=== PATIENT | female | born 1935 | race Caucasian/White ===

== ENCOUNTER 2021-04-05 12:24 | Inpatient (IN) | payer MEDICARE ==
[~2021-04-05] VITALS: Ht 165.1 cm; Wt 50.3 kg
[~2021-04-05 12:24] MED LIST: ALEVE220 MG PO; CALCIUM 600 +1 EACH PO; COQ10-VIT E 201 EACH PO; OMEPRAZOLE20 MG PO; VITAMIN B COMP1 EACH PO; VITAMIN D-32000 UNIT PO
--- NOTE | 2021-04-05 20:20 | NUR ---
2012 PT ADMITTED TO ROOM 110 FROM ED, ACCOMPAINED BY HER DAUGHTER FLORENCIO. PT ALERT/ORIENTATED, REQUIRED STAFF ASSIST TO MOVE OVER TO BED FROM STRETCHER. ON 2L O2. LIVES ALONE, IS COUGHING, DAUGHTER STATES PT IS WEAK, WHICH IS NOT NORMAL FOR HER. REQUESTED AND RECEIVED SANDWICH, FRUIT.
--- NOTE | 2021-04-05 20:33 | NUR ---
PT ATE PUDDING PRIOR TO THE POTASSIUM TABS. DAUGHTER STATES PT SON WILL BRING IN HER ADVANCED DIRECTIVE ON SUNDAY. PT STATES SHE ISNT TOO HUNGRY DESPITE NOT EATING ALL DAY. DAUGHTER NOT PLANNING TO STAY, BED ALARM PLACED FOR PT SAFETY.
--- NOTE | 2021-04-05 22:43 | NUR ---
PATIENT ASSESEMENT COMPLETED. PATIENT REMAINS ON 2L VIA MD. PATIENT HAS CPOX IN USE. PATIENT DENIES ANY SOB. PATIENT DENIES ANY PAIN. PATIENTS MEDICATIONS GIVEN PER ORDER. PATIENT DENIES THE NEED TO USE THE RESTROOM AT THIS TIME. PATIENT DENIES ANY NEEDS. CALL LIGHT IN REACH.
--- NOTE | 2021-04-06 01:39 | NUR ---
PATIENT VITALS TAKEN AND RECORDED. PATIENT DENIES ANY SOB. PATIENT DENIES ANY NEEDS. CALL LIGHT IN REACH. BED ALARM ON FOR SAFETY.
--- NOTE | 2021-04-06 03:44 | NUR ---
BED ALARM ALERTED STAFF. PATIENT ASSISTED TO THE BSC A 1PA. PATIENT WAS ABLE TO VOID. PATIENT IS BACK IN BED RESTING. FRESH ICE WATER PROVIDED. PATIENT REMAINS ON 3L VIA NC. PATIENT DENIES ANY FURTHER NEEDS. CALL LIGHT IN REACH. BED ALARM ON FOR SAFETY.
--- NOTE | 2021-04-06 05:23 | NUR ---
PATIENTS VITALS TAKEN AND RECORDED. INTAKE AND OUPUT RECORDED. PATIENT DENIES ANY NEEDS. CALL LIGHT IN REACH.
--- NOTE | 2021-04-06 07:51 | NUR ---
Shift report recieved from CHRISTINE Em, pt resting safely in bed w/ call light in reach, bed alarm on, and eyes closed. RR even and unlabored, SPO2 stats 93% on 2L via NC.
--- NOTE | 2021-04-06 10:00 | NUR ---
1PA TO CHAIR PT SITTING UP SAFELY W/ FEET ELEVATED AND CALL LIGHT IN REACH, PT DID NOT WANT BREAKFAST BUT GIVEN COFFEE UPON REQUEST. MORNING ASSESMENT COMPLETE AND NO SCHEDULED MEDS AT THIS TIME. PT DENIED ANY OTHER NEEDS AT THIS TIME.
--- NOTE | 2021-04-06 11:07 | NUR ---
Patient refused breakfast. Lunch has been ordered. Vitals, I&os are complete. Patient has not had a BM yet today. Patient has voided however. Call light is in reach.
--- NOTE | 2021-04-06 12:00 | NUR ---
PT SITTING UP IN CHAIR W/ CALL LIGHT IN REACH, EATING LUNCH. PT DENIES ANY NEEDS AT THIS TIME. PT STILL DISORIENTED AT TIMES BUT EASILY REORIENTED.
--- NOTE | 2021-04-06 12:46 | NUR ---
PATIENT UP IN CHAIR IN ROOM. STAFF NURSE STATES THAT SHE IS JUST A LITTLE CONFUSED RIGHT NOW. CALLED DAUGHTER YAHAIRA RAMIREZ TO DO ASSESSMENT. PATIENT LIVES IN OWN HOME. DRIVES ONLY LOCALLY. DOES HER OWN HOUSEWORK, COOKING, YARD WORK AND SHOPPING. STATES SHE LIVES JUST A FEW BLOCKS AWAY AND SHE COOKS DINNER USUALLY, DOES MAIN SHOPPING FOR PATIENT. PATIENT LIVES ON ONE LEVEL. HAS A FWW SHE USES ON OCCASION. ALSO HAS A 4WW AND A CANE. HAS WALK-IN SHOWER WITH SEATING. GRAB BARS IN BATHROOM. SHE HAS OTHER ADULT KIDS, ONE SON ALSO IN AREA. SHE ALSO HAS GRANDKIDS, NEICES AND NEPHEWS. STATES FAMILY CHECKS IN AND VISITS WITH HER ALMOST EVERY DAY TOO. SHE STATES PATIENT IS SET UP FINANCIALLY AND HAS NO WORRIES FOR MEDS/FOOD/UTILITIES. THE PLAN WILL BE FOR PATIENT TO RETURN HOME AND FAMILY CAN HELP AT DISCHARGE. SHE HAS NO PREFERENCE FOR OXYGEN SUPPLY IF NEEDED. HER ONLY CONCERN IS MEDICATIONS. SHE STATES PATIENT HAS MANY ALLERGIES AND SENSITIVITIES FOR MEDS AND DOES NOT WANT HER TO RECEIVE ANYTHING UNLESS THEY AGREE TO IT. SHE IS ADAMANT SHE NOT RECEIVED REMDESIVIR. STATES SHE HAS READ UP ON IT AND "IT DOES MORE HARM THAN GOOD". SHE ALSO STATES "I DON'T KNOW WHY YOU AREN'T GIVING IVERMECTIN, IT IS THE ONLY THING WORKING FOR COVID". DISCUSSED THAT SHE WOULD HAVE TO TALK WITH DOCTOR ABOUT THAT, I DO NOT ORDER MEDICATIONS. SHE STATES SHE IS COMING UP TO THE HOSPITAL TO CHECK ON PATIENT. DOES NOT HAVE ANY OTHER QUESTIONS.
--- NOTE | 2021-04-06 14:00 | NUR ---
PT SITTING UP IN CHAIR W/ CALL LIGHT IN REACH, DAUGHTER IN ROOM VISITING. PT DENIES ANY NEEDS AT THIS TIME.
--- NOTE | 2021-04-06 14:09 | NUR ---
Vitals and I&Os are done. Patient is in chair with warm blankets. Call light is in reach. Patient is going to try to use the commode. Manager Meat is in room.
--- NOTE | 2021-04-06 16:00 | NUR ---
PT SITTING UP IN CHAIR SAFELY W/ CALL LIGHT IN REACH, PT GIVEN FRESH ICE WATER AND HOT TEA PER REQUEST. PT DENIES ANY OTHER NEEDS AT THIS TIME.
--- NOTE | 2021-04-06 17:55 | NUR ---
Patient is working on eating dinner and has eaten about 10% of it so far. vitals, I&Os are done.
--- NOTE | 2021-04-06 18:05 | NUR ---
PT SITTING UP IN BED EATING DINNER, PT DENIES ANY NEEDS AT THIS TIME, PT NOW AWARE SHE IS IN A HOSPITAL BUT STILL CONFUSED ON WHAT MONTH OR YEAR IT IS, AND WHAT TOWN WE'RE IN.
--- NOTE | 2021-04-06 19:53 | NUR ---
RECEIVED REPORT FROM DAY SHIFT RN. PATIENT IS RESTING IN BED. DAUGHTER IS AT THE BEDSIDE. NO NEEDS NOTED. CALL LIGHT IN REACH.
--- NOTE | 2021-04-06 22:01 | NUR ---
PATIENT ASSESMENT COMPLETED. PATIENT WAS INCONTINENT OF URINE. PATIENTS ATTEND CHANGED AND SMITA CARE COMPLETED. VITALS TAKEN AND RECORDED. INTAKE AND OUTPUT RECORDED. PATIENT GIVEN SCHEDULED MEDICATION PER ORDER. PATIENT IS CONFUSED. PATIENT DOES OREINT EASILY. PATIENT DENIES ANY SOB. PATIENT REMAINS ON 2L VIA NC. CPOX IN USE. CALL LIGHT AND BELONGINGS ARE WITHIN REACH. BED ALARM ON FOR SAFETY.
--- NOTE | 2021-04-06 23:51 | NUR ---
PATIENT IS RESTING IN BED WITH EYES CLSOED, RR 15. CPOX READINGS ARE WNL. CALL LIGHT IN REACH. BED ALARM ON FOR SAFETY.
--- NOTE | 2021-04-07 01:11 | NUR ---
PATIENT IS RESTING IN BED WITH EYES CLOSED, RR 16, CPOX READINGS ARE WNL. PATIENTS CALL LIGHT IS WITHIN REACH. BED ALARM ON FOR SAFETY.
--- NOTE | 2021-04-07 03:52 | NUR ---
PATIENT IS RESTING IN BED WITH EYES CLOSED, RR15. OXYGEN SATURATION 93% PATIENT REMAINS ON 2L VIA NC. CALL LIGHT IN REACH. BED ALARM ON FOR SAFETY.
--- NOTE | 2021-04-07 05:21 | NUR ---
PATIENT WAS INCONTINENT OF URINE. ATTEND AND BEDDING CHANGED. ALLEVYN PLACED ON COCYX. PATIENT IS ON 3L VIA NC. PATIENT DENIES ANY PAIN OR SOB. PATIENT DENIES ANY NEEDS. PATIENT WAS ABLE TO STATE THAT SHE WAS IN A HOSPITAL. PATIENT IS UNAWARE OF DATE, TIME, AND WHY SHE IS HERE. PATIENT ORIENTED. PATIENT DENIES ANY QUESTSIONS. CALL LIGHT IN REACH. BED ALARM ON FOR SAFETY.
--- NOTE | 2021-04-07 08:00 | NUR ---
Shift report received from CHRISTINE Em, pt resting safely in bed w/ call light in reach and bed alarm on. O2 sats 94% on 3L via NC. Daughter in room assisting pt w/ breakfast no needs at this time.
--- NOTE | 2021-04-07 09:23 | NUR ---
Patient was encouraged to use call light. Patient via BSC, 1PA and back to bed. Call light is in reach.
--- NOTE | 2021-04-07 10:00 | NUR ---
PT SITTING UP IN BED W/ CALL LIGHT IN REACH, SENIOR MECHANICAL DESIGNER IN ROOM TO ASSIST PT TO BATHROOM
--- NOTE | 2021-04-07 11:35 | NUR ---
PATIENT QUALIFIES FOR HOME OXYGEN ACCORDING TO RT. UPDATED DR CORTEZ. DISCHARGE WILL BE STARTED. CALLED DAUGHTER YAHAIRA [phone] WHO I SPOKE WITH YESTERDAY. SHE STATES SHE IS AT WORK. DISCUSSED THAT PATIENT CAN BE DISCHARGE WITH HOME OXYGEN AND WANTED TO CONFIRM WITH HER SHE HAS NO PREFERENCE FOR DME TO USE AND TO SEE IF THEY HAD ANYTHING ELSE THAT WOULD BE NEEDED. SHE STATES SHE WAS IN EARLIER TODAY AND NO ONE MENTIONED DISCHARGE. TURNS OUT SHE WAS IN EARLY BEFORE WORK. DISCUSSED THAT IT WAS JUST DETERMINED IN THE LAST HOUR THAT SHE IS MEDICALLY READY. SHE STATES "WELL I CAN'T TAKE HER HOME, I AM AT WORK". EXPLAINED WE CAN WAIT TILL LATER TODAY IF SHE NEEDS. I ASKED AGAIN IF THERE WAS ANYTHING NEEDED, SHE HAD SAID YESTERDAY THE PATIENT HAS A WALKER AND CANE IF NEEDED AT HOME. DISCUSSED THAT SHE IS ABLE TO AMBULATE WITH STAFF BUT SHE MAY WANT TO USE THAT FOR STABILITY. DISCUSSED THAT PATIENT WILL NEED SOMEONE AROUND UNTIL SHE IS RECOVERED ENOUGH TO TAKE CARE OF SELF AGAIN. I ASKED IF THEY HAVE ARRANGED WHO WAS STAYING WITH HER. SHE THEN STATED "WELL MY BROTHER IS OUT OF TOWN AND I HAVE TO WORK. I DON'T KNOW WHO IS STAYING. WE DON'T HAVE ANYONE WHO CAN BE THERE. I THOUGHT SHE WAS STAYING THERE UNTIL SHE WAS WELL". EXPLAINED THAT PATIENTS STAY UNTIL MEDICALLY STABLE AND CAN GET THE CARE THEY NEED AT LOWER LEVEL AND DO NO LONGER NEED ACUTE CARE. I DISCUSSED THAT YESTERDAY SHE INDICATED THE FAMILY WOULD BE PROVIDING CARE AFTER DISCHARGE. EXPLAINED I CAN HELP THEM ARRANGE A REHAB STAY IF NEEDED, BUT THIS WOULD BE AN OUT OF TOWN FACILITY THERE IS NO WHERE AROUND OUT AREA WHO TAKE COVID PATIENTS. SHE STATES "NO NO WE DON'T WANT HER IN ONE OF THOSE". SHE STATES THAT "NURSE TOLD ME SHE WAS INCONTINENT LAST NIGHT, YOU DON'T SEND SOMEONE HOME WITH THAT RIGHT?". EXPLAINED THAT NO THAT WAS NOT AN ACUTE HOSPITAL ISSUE. THAT DEPENDS CAN BE USED IF NEEDED. I ASKED IF THEY WANTED TO HIRE SOME HELP, SHE HAD TOLD ME YESTERDAY THAT PATIENT WAS WELL TAKEN CARE OF FINANICALLY. SHE STATED "I DON'T THINK THERE IS ANYONE AROUND HERE LIKE THAT". I EXPLAINED THERE IS AN AGENCY IN TOWN SHE CAN CALL, AND GAVE HER THE CONTACT NUMBER FOR THEM. I ALSO STATED THERE ARE PRIVATE CAREGIVERS IN THE AREA AND SHE CAN OBTAIN A LIST FROM SENIORS AND DISABILITY OFFICE SHE CAN HIRE FROM. EXPLAINED THAT WE WANT TO GIVE HER SOME TIME TO TALK WITH HER OTHER FAMILY MEMBERS AND TO LET US KNOW LATER THIS AFTERNOON WHAT THEY WANT TO DO. SHE STATES "MY BROTHER WANTS HER TO GET AN ANTIVIRAL. WHY CAN'T YOU PEOPLE GIVE HER HYDROXYCHLORIQUINE OR IVERMECTIN, I KNOW FOR A FACT THEY CURE COVID". SHE ALSO STATES "OR A ANTIBIOTIC AT LEAST". I EXPLAINED THAT THESE ARE NOT USED FOR COVID. I SUGGESTED SHE TALK WITH THE DOCTOR IF SHE HAS MORE CONCERNS REGARDING THIS. UPDATED STAFF AND DR CORTEZ.
--- NOTE | 2021-04-07 12:00 | NUR ---
PT SITTING UP IN BED EATING LUNCH DAUGHTER IN ROOM, UPDATE GIVEN. PT'S O2 SATS 94% ON 3L VIA NC, DENIES ANY NEEDS AT THIS TIME.
--- NOTE | 2021-04-07 13:15 | NUR ---
DR CORTEZ STATES HE SPOKE WITH SON HUSSAIN WHO IS POA. HE STATES PATIENT NEEDS TO GO TO REHAB UNTIL ABLE TO GO HOME. CALLED LOCAL FACILITIES, NO ONE TAKES POSITIVE COVID PATIENTS WHO ARE STILL IN QUARANTINE PHASE. CALLED [facility] IN [place] WHO DO TAKE COVID PATIENTS. LEFT MESSAGE FOR DIRECTOR STEPHANIE. ASKED FOR CALL BACK ON IF THEY ARE TAKING PATIENTS DIRECTLY NOW. LEFT CALLBACK NUMBER.
--- NOTE | 2021-04-07 13:16 | NUR ---
MED REC COMPLETE
--- NOTE | 2021-04-07 14:00 | NUR ---
CASE MANAGMENT SPEAKING W/ PT NO NEEDS AT THIS TIME.
--- NOTE | 2021-04-07 14:30 | NUR ---
SPOKE WITH PATIENT FROM DOORWAY IN ROOM. PATIENT IS PLEASANT, BUT OBVIOUSLY CONFUSED. WAS UNABLE TO ANSWER QUESTIONS. WILL CALL POA.
--- NOTE | 2021-04-07 15:00 | NUR ---
SPOKE WITH SON HUSSAIN BY PHONE [phone]. HE IS POA. HE STATES HE DID TALK WITH DR CORTEZ. HE STATES HE SPOKE WITH PATIENT BY PHONE AND THAT HE FEELS SHE IS TOO CONFUSED TO GO HOME AND WOULD LIKE HER TO GO TO A FACILITY TO RECOVER. DISCUSSED THAT THERE ARE NO FACILITIES IN [facility]. THAT WE CAN SUBMIT A COVID SURGE FORM TO THE STATE AND THEY WILL HELP FIND A FACILITY THAT CAN TAKE COVID POSITIVE PATIENTS AT THIS TIME. HE STATES UNDERSTANDING AND IS AGREEABLE TO THIS. I ASKED IF WE HAD A COPY OF THE POA WE MAY NEED THIS, HE STATES THE HOSPITAL HAS IT ALREADY. QUESTIONS ANSWERED.
--- NOTE | 2021-04-07 16:00 | NUR ---
PT SITTING UP IN BED W/ CALL LIGHT IN REACH. O2 SATS REMAIN STABLE AT 93% ON 3L VIA NC. PT STILL CONFUSED AT TIMES, BUT EASILY REORIENTED.
--- NOTE | 2021-04-07 16:00 | NUR ---
SUBMITTED [place] [employer] COVID SURGE FORM BY EMAIL TO [email or web address].
--- NOTE | 2021-04-07 16:20 | NUR ---
RECEIVED CALL FROM DAUGHTER YAHAIRA. UPDATED HER ON CONVERSATIONS WITH HER BROTHER. SHE STATES "SHE HAS HAD COVID FOR TWO WEEKS, SHE ISN'T CONTAGIOUS ANYMORE". EXPLAINED HER TESTING WAS ON 04/05 AND THAT IS THE DATE I HAVE TO USE. SHE IS AGREEMENT THAT PATIENT CAN'T GO HOME ALONE. STATES SHE CAN "DRIVE BY A COUPLE TIMES A DAY, BUT I WORK". AGAIN SHE IS REQUESTING "HYDRACHLORAQUINE AND IVERMECTIN". ALSO "YOU NEED TO READ THE RIGHT LITERATURE". DID NOT ENGAGE WITH THIS. TOLD HER I HAVE SUBMITTED REQUEST FOR A COVID BED IN THE STATE. WE WILL LET THEM KNOW WHEN WE HEAR ANYTHING.
--- NOTE | 2021-04-07 18:02 | NUR ---
Patient vitals, I&Os are done. Patient is waiting for her dinner to come.
--- NOTE | 2021-04-07 18:20 | NUR ---
PT RESTING IN BED SAFELY IN BED EATING DINNER, DAUGHTER AT BEDSIDE, NO NEEDS AT THIS TIME
--- NOTE | 2021-04-07 20:49 | NUR ---
pleasantly confused, coop with assessment. on 2L O2. lu8ngs dim w fine cracklesa, moist productive cough white phlegms. distended soft abd, attends in place, edema LE, SL LA, patent. HOB elevated, watching tv. fall amd aspiration precautions in place. on airborne isolation
--- NOTE | 2021-04-07 22:59 | NUR ---
RESTING, O2 2LNC, CPOX AT BEDSIDE 95%, HOB ELEVATED TO COMFORT, BED ALARM ON, FALL PRECAUTIONS IN PLACE, CALL LIGHT AND FLUIDS AT BEDSIDE, CONTINUES ON AIRBORNE ISOLATION PRECAUTIONS
--- NOTE | 2021-04-08 00:19 | NUR ---
incontinent of large amont of urine, skin care, attends in place. turned and repositioned, O2 2L NC, sats 91%. legs elevated, hob elevated to comofrt, no sob with repositioning, pt confused, unable to understand proning positioning or CDB/IS usage. on airborne isolation precautions
--- NOTE | 2021-04-08 02:24 | NUR ---
PT IN BED, O2 2LNC, CPOX AT BEDSIDE 94%. BED ALAMR ON, FLUIDS AND CALL LIGHT AT HANDS REACH, CONT. ON AIRBORNE ISOLATION PRECAUTIONS
--- NOTE | 2021-04-08 05:05 | NUR ---
Pt on Airborne Isolation Precautions, On 2LNC, cpox in place, sats 94-96%, no cough at this time. lungs dim at bases with fine crackles earlier in shift, just dim at this time. Has slept, coop with turning and repositioning. Was incontinent of urine, skin care, barrier cream, clean attends. Pleasantly confused. all procedures explained. Fall and Aspiration precautions in place. Bed alarm on. sl patent. tolerating fluids well. bruising over arms and legs
--- NOTE | 2021-04-08 06:56 | NUR ---
Pt incontinent of large amount of strong smelling urine, skin care, clean attends in place. cooperative, pleasantly confused. tolerating small sips of fluids.
--- NOTE | 2021-04-08 07:39 | NUR ---
Patient resting in bed, respirations even and non labored. Patient remains on 2L oxygen per nc, spo2 93% at this time. Daughter at bedside-she reports she is patient's caregiver. No pt distress noted. Personal supplies and call light within reach.
--- NOTE | 2021-04-08 08:00 | NUR ---
RECEIVED EMAIL BACK FROM [facility] COVID SURGE REQUEST. THEY HAVE FORWARDED CHART FOR REVIEW TO SNF IN [place].
--- NOTE | 2021-04-08 08:31 | NUR ---
Patient is sitting in chair and eating a snack from her daughter. Breakfast was ordered. Vitals, I&Os are complete.
--- NOTE | 2021-04-08 08:33 | NUR ---
Patient had a bed bath 1PA assist, on Apr.06.
--- NOTE | 2021-04-08 12:27 | NUR ---
Patient assisted to bedside commode for void then back to bed. Patient weak, unsteady gait. Lunch brought to patient, encouraged her to eat-pt eats small bites independently. No current needs at this time. Patient remains on 2L oxygen per nc, respirations even and non labored. Personal supplies and call light within reach.
--- NOTE | 2021-04-08 13:30 | NUR ---
REPORT RECIEVED GARY DONG RN. PT SITTING IN BED WITH DAUGHTER AT BEDSIDE. 2L NC IN PLACE. CPOX. BEST WNL. CALL LIGHT IN REACH.
--- NOTE | 2021-04-08 14:11 | NUR ---
Patient vitals, I&Os are done. Call light is in reach.
--- NOTE | 2021-04-08 15:02 | NUR ---
CALLED [facility] [phone]. SPOKE WITH DAVE IN ADMITTING. THEY DID RECEIVED EMAIL PACKET, BUT THEN ANOTHER EMAIL STATING TO DISREGARD IT WAS SENT TO [facility]. HE SUGGESTED I CALL SMITHA AT [facility]. CALLED SMITHA [facility] [phone]. SHE STATES THEY FORWARDED REFERRAL TO [facility] AND TO CALL [facility] [phone]. CALLED AND SPOKE WITH HER. SHE STATES THEY HAVE NOT RECEIVED, BUT WITH FURTHER LOOKING SHE FOUND IT. SHE STATES THEY WILL REVIEW. GAVE HER THE CONTACT FOR OUR NURSING DRESS DESIGNER PHONE IN CASE IT IT AFTER OUR HOURS OR ON THE WEEKEND. SHE STATES SHE IS NOT SURE WHEN THEY CAN DETERMINE IF THEY HAVE A BED. MIGHT BE NEXT WEEK. ALSO GAVE HER DISCHARGE OFFICE FOR CASE MANAGEMENT CONTACT NUMBER. CALLED PATIENTS SON HUSSAIN YEE AND UPDATED HIM. ALSO DISCUSSED THAT IF SHE GETS ACCEPTED SOMEWHERE, TRANSPORTATION WILL BE AT PATIENTS COST. FAMILY CAN TRANSPORT OR A TRANSPORT COMPANY CAN BE CONTACTED WHICH IS ALL OUT OF POCKET. HE IS FINE WITH THIS. HE ASKED IF WE CAN ARRANGE THAT AHEAD OF TIME, BUT EXPLAINED WE CANNOT UNTIL WE KNOW FOR SURE WHERE AND WHEN SHE IS GOING. ALL QUESTIONS ANSWERED.
--- NOTE | 2021-04-08 15:09 | NUR ---
PACKET WILL BE LEFT WITH CLINICALS, PASSR AND CONTACT INFORMATION IN HARD CHART AT NURSES STATION IN CASE THEY CALL ON THE WEEKEND.
--- NOTE | 2021-04-08 15:30 | NUR ---
IN FOR PT ASSESSMENT. ASSISTED TO BATHROOM FOR VOID. CALL LIGHT IN REACH. DENEIS FURTHER NEEDS.
--- NOTE | 2021-04-08 15:31 | NUR ---
UPDATED BI TECHNICAL LEAD AND SHAKER FLATWORK DEBRA ON NEEDS IF FACILITY FROM [place] CALLS AND ACCEPTS PATIENT THROUGH WEEKEND. NOTE WITH INSTRUCTIONS GONE OVER WITH THEM AND LEFT IN CHART WITH PACK.
--- NOTE | 2021-04-08 17:00 | NUR ---
PT UP TO CHAIR FOR DINNER. INCONT OF URINE. ATTENDS CHANGED. DENIES NEEDS. CALL LIGHT IN REACH. DAUGHTER AT BEDSIDE.
--- NOTE | 2021-04-08 17:22 | NUR ---
Daughter is in room. RN did vitals. I&Os are complete and patient has just recieved her dinner.
--- NOTE | 2021-04-08 20:59 | NUR ---
awake, watching tv. on airborne isolation precautions, O2 @LNC, lungs dim and fine crackles t/o. moist non prod cough present. fluids at bedside, no emesis. hob elevated. cpox at [facility]. bed alarm on legs elevated. pleasantly confused. turned and repositioned, melany rae of urine
--- NOTE | 2021-04-08 21:18 | EKG ---
[facility] [address] [place], [place] [address] Signed Sinus rhythm with 1st degree AV block with premature atrial complexes Possible Anterior infarct , age undetermined Abnormal ECG No previous ECGs available Confirmed by WILMA CHANG DO ([id number]) on 04/08/2021 9:18:22 PM Electronically Signed By: WILMA CHANG DO 04/08/212117 PATIENT NAME: JAMESELVIRAKYM WEBB Electrocardiogram DATE OF : 33 PHYSICIAN: WILMA CHANG DO REPORT #: [id number] REPORT IS CONFIDENTIAL AND NOT TO BE RELEASED WITHOUT AUTHORIZATION
--- NOTE | 2021-04-08 23:59 | NUR ---
RESTING, HOB ELEVATED, O2 2L NC/BEDSIDE CPOX AT 92%. BED ALARM ON
--- NOTE | 2021-04-09 02:32 | NUR ---
INCONTINENT OF LARGE AMOUNT OF URINE, SKIN CARE, CLEAN ATTENDS INPLACE, WHOLE BED AND GOWN CHANGED, COOPERATIVE, ALL PROCEDURE EXPLAINED. BED ALRM ON, TOLERATING SIPS OF LIQUIDS. BED ALARM ON. TURNED TO L SIDE, CPOX AT BEDSIDE 2lnc, SATS 94%
--- NOTE | 2021-04-09 03:25 | NUR ---
pt getting oob, bed alarm set off, pt needs to void, 1pa pivot to bedside commode, void 300mls, back to bed at this time, bed alarm reset
--- NOTE | 2021-04-09 04:21 | NUR ---
Pt continues on airborne isolation precautions. On 2LNC, bedside cpox 92-96%. Lungs dim at bases, occassional cough present, no oral drainage. pleasantly confused, was incontinent of urine several tiimes, skin care, barrier cream and clean attends, whole bed changes. Bed alarm on, went off X1 trying to get out of bed, up to bsc with 1PA, voided, back to bed, tolerated well, no desatting, no sob with exertion, fluids at bedside, no emesis, tolerating small sips.
--- NOTE | 2021-04-09 06:33 | NUR ---
turned and repositioned, attends clean, O2 weaned off from 2L sats 96%, to 1L sats 94%, to room air, bedside cpox 91%. Pt was on room air when turned and repositioned. cpox in place, did not desatted. took sips of water. cooperative, hob elevated, fall and aspiration precautions in place. bed alarm on
--- NOTE | 2021-04-09 09:30 | NUR ---
REPORT RECEIVED FROM NIGHT RN AND PT. CARE RESUMED. PT. IS ALERT AND UP IN THE CHAIR. SHE ORIENTED TO ALL BUT DATE. SHE APPEARS CONFUSED THOUGH AND CANNOT TELL ME WHAT IS WRONG OR IF SHE IS HAVING PAIN. LUNGS DIM. IN THE BASES BILAT. IV SITE FLUSHES AND WNL. PT. LEFT RESTING IN THE CHAIR WITH CALL LIGHT IN REACH EATING BREAKFAST.
--- NOTE | 2021-04-09 10:20 | NUR ---
[facility] [place], and prefer that she be down there as early as possible. I did explain the distance factor, their request was to have her there before 3:00 p.m. Folled up with Son Danny who is listed as her primary contact, to inquire if family would drive her, or if we need to look for transportation. Danny will follow-up with his family members and get back to me on transportation options.
--- NOTE | 2021-04-09 15:00 | NUR ---
ROUNDING ON PT. SHE IS SITTING UPRIGHT IN BED. 02 SAT IS 95%. HER NC IS ON HER FOREHEAD. REMOVED 02 NC. SHE IS CONFUSED AND STATES SHE WISHES SHE KNEW WHAT SHE NEEDS. PT. REORIENTED BY THIS RN. ATTENDS DRY. PT. DENIES PAIN OR FURTHER NEEDS. LEFT RESTING WITH CALL LIGHT IN REACH.
[2021-04-09] MEDS ORDERED: DEXAMETHASONE6 MG PO (15:50)
--- NOTE | 2021-04-09 16:02 | NUR ---
Nargis is scheduled to discharge tomorrow to [facility] in [place], address is [address] [place] [address]. Daughter Igor Monaco will come in at 0900 to pick Nargis up and transport her per private vehicle. Pt will need to go with oxygen. There are [employer] tanks in house for this trip. Length of trip was reviewed with [employer] rep. who reported, if the patient goes on 2L 02, send three tanks. Per [employer] rep. they should be able to make the trip on 1-2 Liters of 02 with 2 tanks, however, advises sending 3 tanks in case there are unexpected delays in the trip. This has been explained to RT Adalid who [facility], and this has been explained to Hailey Diaz [employer] Assembler, who is also scheduled to work tomorrow. Patient should go with 1 regulator, 3 tanks, someone will need to teach the daughter how to switch the tanks given we do not have enough regulators available for each individual tank.
--- NOTE | 2021-04-09 17:38 | NUR ---
Called [facility] and left a message to let them know that the daughter would be at our facility at 0900 tomorow, 04/10/2021. I have faxed the orders today, and left the phone number for our medical department should they have any questions in the morning. [facility] also [facility] that [facility] would come with three 02 tanks, and that [facility] would need to call [employer] in their area to have the tanks picked up, per our [employer] rep. the daughter should not be asked to drive the tanks back to [place].
--- NOTE | 2021-04-09 18:10 | NUR ---
PT. DUE TO VOID. SHE STATES SHE IS NOT SURE IF SHE HAS TO GO. . PT HAD AMBULATED WITH SBA TO BATHROOM AND HAD A LARGE VOID. ON AND 02 SAT REMAINS ABOVE 92% WITH AMBULATION.
--- NOTE | 2021-04-09 20:36 | NUR ---
continues on airborne isolation precautions, cooperative with assessment, on room air, lungs crackles at bases, cpox at bedside 93%. Incontinent of urine, red fior area, allevyn in place buttocks area. repositioned in bed. moist non productive cough noted. aspiration precautions in place. bed alrm, fall precautions.
--- NOTE | 2021-04-09 23:42 | NUR ---
BED ALARM GOING OFF, TRYING TO GET OUT OF BED, HELPED TO BSC, VOIDED, BACK TO BED, SBA. BED ALRM ON. BEDSIDE CPOX IN PLACE, CONTINUES ON AIRBORNE ISOLATION PRECAUTIONS
--- NOTE | 2021-04-10 00:22 | NUR ---
PT UP TO BSC, 1PA/ FWW. PERICARE DONE. PT BACK IN BED, TURNED RIGHT WITH PILLOW SUPPORT.
--- NOTE | 2021-04-10 01:49 | NUR ---
Resting, on room air, bedside cpox in place, sats 92%, no distress, bed alarm on
--- NOTE | 2021-04-10 05:20 | NUR ---
Pt continues on airborne isolation precautions. may be DC to a [place] [facility] facility today via private car. pt pleasantly confused. on room air, lungs dim at bases, fine crackles. bedside cpox in place, sats 92-95%. Was incontinent of urine and tried to get out of bed X1, BSC 1PSB, voided and went back to bed, has slept most of this shift. has turned. cooperative with assessments. Bed alarm on, HOB elevated for meals or drinking. fall and aspiration precautions in place.
--- NOTE | 2021-04-10 08:00 | NUR ---
REPORT RECEIVED FROM NIGHT RN AND PT. CARE RESUMED. PT IS BEING PREPARED FOR TRANSFER TO REHAB FACILITY. ALLEVYN REPLACED ON COCYX PER DAUGHTER'S REQUEST SKIN UNDERNEATH IS INTACT AND WITHOUT REDNESS. IV REMOVED BY [employer] WORKER. PT. AMBULATING WITH SBA AND FWW TO THE BATHROOM TO VOID AND ASSISTED WITH DRESSING. ALL PT. AND FAMILY QUESTIONS ANSWERED.
--- NOTE | 2021-04-10 09:36 | NUR ---
[facility] CALL[facility] TO GIVE REPORT. PLACED ON HOLD FOR 10 MINUTES AND STAFF REPORT THAT RN IS UNAVAILABLE AND SHE IS NOT SURE WHEN SHE WILL BE AVAILABLE. PT. HAS LEFT WITH DAUGHTER AND ALL BELONGINGS VIA WHEELCHAIR WITH [employer] DRIVER. SHE HAD DISCHARGE INSTRUCTIONS AND ORDERS TO TAKE TO THE FACILITY AND 02 TANKS. VITALS STABLE
== END 2021-04-10 09:10 | DRG 177 ==
LOC: ED 12:24 → MS 19:07
PROVIDERS: ADMIT Internal Medicine; ATTEND Internal Medicine
PROC: 3E0DX3Z Introduction of Anti-inflammatory into Mouth and Pharynx, External Approach (ICD-10-PCS; principal; 2021-04-05)
DX: U07.1 COVID-19 (principal); J12.82 Pneumonia due to coronavirus disease 2019; J96.01 Acute respiratory failure with hypoxia; J43.9 Emphysema, unspecified; M81.0 Age-related osteoporosis without current pathological fracture; M19.90 Unspecified osteoarthritis, unspecified site; M40.209 Unspecified kyphosis, site unspecified; Z90.711 Acquired absence of uterus with remaining cervical stump; Z90.721 Acquired absence of ovaries, unilateral; Z98.890 Other specified postprocedural states; Z90.49 Acquired absence of other specified parts of digestive tract; Z98.1 Arthrodesis status; Z87.11 Personal history of peptic ulcer disease; Z88.5 Allergy status to narcotic agent; Z88.4 Allergy status to anesthetic agent
CPT/HCPCS: 71045; 80053; 83735; 83880; 84484; 85025; 93005; 93010; 94640; 94760; 94761; 94762; 96372; 97162; 99285-25; A9270; C9803; J1650; J3475; U0003